=== PATIENT | female | born 1980 | race Caucasian/White ===

== ENCOUNTER 2024-01-29 00:03 | Emergency (ER) | payer BC ==
[~2024-01-29] VITALS: Ht 165.1 cm; Wt 72.6 kg
[2024-01-29 00:10] VITALS: BP 123/98; PULSE 71; RESP 18; TEMP 98.6; O2SAT 99
[2024-01-29] MEDS ORDERED: TORADOL ONE (01:01)
[2024-01-29 01:10] VITALS: BP 126/71; PULSE 73; RESP 18; TEMP 98.6; O2SAT 99
[2024-01-29] MEDS: TORADOL IV STA (01:10)
[2024-01-29 01:25] LABS: BASOPHIL % 0.2 % (0.1-1.2); EOSINOPHIL # 0.1 10^3/uL (0.0-0.2); EOSINOPHIL % 1.4 % (0.0-5.0); HEMATOCRIT(ML) 42.7 % (36.0-46.0); HEMOGLOBIN 14.1 g/dL (12.0-15.0); LYMPHOCYTES # 2.28 10^3/uL1 (1.0-4.8); MEAN CORP HGB 31.3 pg (26-34); MEAN CORP VOLUME 94.9 fL (78-100); MONOCYTES # 0.6 10^3/uL (0.3-0.8); MONOCYTES % 6.6 % (5.0-12.0); NEUTROPHIL # 6.4 10^3/uL (1.8-7.7); NEUTROPHILS % 67.7 % (41.0-85.0); PLATELET COUNT 255 10^3/uL (150-400); RED CELL DISTRIBUTION WIDTH 13.1 % (11.5-14.5); WHITE BLOOD CELL 9.5 10^3/uL (4.5-11.0)
[2024-01-29 01:25] LABS: BILIRUBIN,URINE NEGATIVE (NEGATIVE); LEUKOCYTE ESTERASE ,URINE 1+ (NEGATIVE); NITRATE,URINE NEGATIVE (NEGATIVE); UROBILINOGEN,URINE 0.2 E.U./dL (0.2)
[2024-01-29 01:26] LABS: UA COLOR YELLOW
[2024-01-29 01:27] LABS: +ADD MANUAL DIFF(NO CHRG) NO
[2024-01-29 01:31] LABS: APPEARANCE,URINE HAZY
[2024-01-29 01:35] LABS: INR 0.9; PROTHROMBIN PROTIME 9.9 SEC (9.7-11.6)
[2024-01-29 02:10] VITALS: BP 124/81; PULSE 71; RESP 18; TEMP 98.6; O2SAT 99
[2024-01-29 02:31] LABS: ALBUMIN/GLOBULIN RATIO 0.909; ANION GAP 12.9; BUN/CREATININE RATIO 8.79 (10.0-20.0); CALCIUM 8.6 mg/dL (8.4-10.5); CARBON DIOXIDE 27.6 mmol/L (20.0-32); CREATININE SERUM 0.91 mg/dL (0.59-1.40); EST GFR, NON-AA 66.9 (>/=60); POTASSIUM 3.5 mmol/L (3.6-5.2)
[2024-01-29] MEDS ORDERED: PHEN-406 PO (03:02)
[2024-01-29] MEDS ORDERED: KETO10TA PO (03:02)
[2024-01-29] MEDS ORDERED: CIPR500T4 PO (03:02)
[2024-01-29] MEDS ORDERED: CIPRO ONE (03:04)
[2024-01-29 03:06] VITALS: BP 126/74; PULSE 68; RESP 18; TEMP 98.6; O2SAT 99
[2024-01-29] MEDS: CIPRO PO STA (03:06)
== END 2024-01-29 03:06 | disposition home or self-care (01) ==
LOC: ER 00:03
DX: N39.0 Urinary tract infection, site not specified (principal); D86.9 Sarcoidosis, unspecified; F12.90 Cannabis use, unspecified, uncomplicated; Z90.49 Acquired absence of other specified parts of digestive tract
CPT/HCPCS: 99284; 74177; 96374; 87086; 80053; 85025; 36415; 81001; 83690; 85610; 85730; 87077; 84703; 87186; J1885; Q9965